=== PATIENT | female | born 1995 | race Caucasian/White ===

== ENCOUNTER 2017-03-01 18:30 | Emergency (ER) | payer OTHER ==
[~2017-03-01] VITALS: Ht 162.6 cm; Wt 73.0 kg
[2017-03-01 18:30] VITALS: BP_SYST 134
[2017-03-01] MEDS ORDERED: DIPH-TET-PERTUS Vaccine 0.5 ML VIAL (ADACEL) IM ONE (19:30)
[2017-03-01] MEDS ORDERED: ACETAMINOPHEN 500 MG TABLET PO ONE (19:30)
[2017-03-01 19:40] VITALS: BP_SYST 124
== END 2017-03-01 19:40 | disposition home or self-care (01) ==
LOC: SED 18:30
DX: S61.412A Laceration without foreign body of left hand, initial encounter (principal); J45.909 Unspecified asthma, uncomplicated; W26.8XXA Contact with other sharp object(s), not elsewhere classified, initial encounter; Y93.89 Activity, other specified; Y92.89 Other specified places as the place of occurrence of the external cause; Y99.8 Other external cause status
CPT/HCPCS: 90715; 99283

== ENCOUNTER 2018-06-19 00:03 | Emergency (ER) | payer OTHER ==
[~2018-06-19] VITALS: Ht 162.6 cm; Wt 70.3 kg
[2018-06-19 00:20] VITALS: BP_SYST 127
--- NOTE | 2018-06-19 00:21 | NUR ---
Pt complain of possible bug bite. Per pt stated that she noticed pain on the left lower leg approximately 10am, pain level of 5/10. Pt able to ambulate. slight swelling noted. Pt resting in bed. afibrile. Will continue to monitor
--- NOTE | 2018-06-19 00:44 | NUR ---
ER at bedside examining patient.
[2018-06-19] MEDS ORDERED: IBUPROFEN 800 MG TABLET PO ONE (01:00)
[2018-06-19] MEDS ORDERED: CLINDAMYCIN HCL 150 MG CAPSULE PO ONE (01:00)
--- NOTE | 2018-06-19 01:00 | NUR ---
Patient given written and verbal discharge instructions and verbalizes understanding. ER MD discussed with patient the results and treatment provided. Patient in stable condition. ID arm band removed. Rx of Bactrim and Motrin given. Patient educated on pain management and to follow up with PMD. Pain Scale 5/10. Per pt able to tolerate pain level. Opportunity for questions provided and answered. Medication side effect fact sheet provided.
== END 2018-06-19 01:00 | disposition home or self-care (01) ==
LOC: SED 00:03
DX: S80.862A Insect bite (nonvenomous), left lower leg, initial encounter (principal); L03.116 Cellulitis of left lower limb; J45.909 Unspecified asthma, uncomplicated; R03.0 Elevated blood-pressure reading, without diagnosis of hypertension; W57.XXXA Bitten or stung by nonvenomous insect and other nonvenomous arthropods, initial encounter; Y93.89 Activity, other specified; Y92.89 Other specified places as the place of occurrence of the external cause; Y99.8 Other external cause status
CPT/HCPCS: 99283

== ENCOUNTER 2018-08-11 08:35 | Emergency (ER) | payer OTHER ==
[~2018-08-11] VITALS: Ht 162.6 cm; Wt 68.0 kg
[2018-08-11 08:53] VITALS: BP_SYST 130
[2018-08-11] MEDS ORDERED: IPRATROPIUM/ALBUTEROL SULFATE 3 ML AMPUL.NEB (DUONEB) INH ONE ×2 (09:30→10:15)
[2018-08-11] MEDS ORDERED: IPRATROPIUM/ALBUTEROL SULFATE 3 ML AMPUL.NEB (DUONEB) ONE (09:32)
[2018-08-11] MEDS ORDERED: NACL 0.9% 1,000 ML IV ONE (10:15)
[2018-08-11] MEDS ORDERED: DEXAMETHASONE SOD PHOSPHATE 10 MG/ML VIAL IVP ONE (10:15)
[2018-08-11 11:51] VITALS: BP_SYST 136
== END 2018-08-11 11:51 | disposition home or self-care (01) ==
LOC: SED 08:35
DX: J45.909 Unspecified asthma, uncomplicated (principal)
CPT/HCPCS: 94640; 96374; 99285; J1100; J7030; J7620; 99284

== ENCOUNTER 2018-11-22 07:05 | Emergency (ER) | payer OTHER ==
[~2018-11-22] VITALS: Ht 162.6 cm; Wt 68.0 kg
[2018-11-22 07:10] VITALS: BP_SYST 130
[2018-11-22 08:00] VITALS: BP_SYST 130
== END 2018-11-22 08:00 | disposition home or self-care (01) ==
LOC: SED 07:05
DX: S06.0X0A Concussion without loss of consciousness, initial encounter (principal); J45.909 Unspecified asthma, uncomplicated; W22.8XXA Striking against or struck by other objects, initial encounter; Y93.89 Activity, other specified; Y92.89 Other specified places as the place of occurrence of the external cause; Y99.8 Other external cause status
CPT/HCPCS: 99283

== ENCOUNTER 2019-05-14 08:36 | Emergency (ER) | payer MEDICAID, OTHER ==
[~2019-05-14] VITALS: Ht 162.6 cm; Wt 70.3 kg
[2019-05-14 08:38] VITALS: BP_SYST 140
--- NOTE | 2019-05-14 08:46 | NUR ---
Patient to ER bed 1 to gown for evaluation. Side rails up. Report given to Lorene BENÍTEZ.
--- NOTE | 2019-05-14 08:50 | NUR ---
Patient presented to ER with C/O headache with chills & sweating. Patient A&Ox4, afebrile, skin pink, pain 2/10, denies N/V/D. Patient states she has had Headache x2 days, today patient states she had facial numbnes and bilat hand numbness. Patient denies other health Hx.
--- NOTE | 2019-05-14 09:49 | NUR ---
ER Dr. Sharif at bedside examining patient.
[2019-05-14 10:00] LABS: BASOPHILS % (AUTO) 0.4 % (0.0-2.0); EOSINOPHILS # (AUTO) 0.1 K/uL (0.0-0.4); EOSINOPHILS % (AUTO) 0.9 % (0.0-4.0); HEMATOCRIT 42.9 % (36-48); HEMOGLOBIN 14.4 g/dL (12.0-16.0); LYMPHOCYTES # (AUTO) 1.2 K/uL (1.0-5.5); LYMPHOCYTES % (AUTO) 9.8 % (20.5-51.5); MEAN CORPUSCULAR HEMOGLOBIN 30 pg (27-31); MEAN CORPUSCULAR HGB CONC 34 % (32-36); MEAN CORPUSCULAR VOLUME 90 fL (79.0-98.0); MONOCYTES # (AUTO) 0.8 K/uL (0.0-1.0); MONOCYTES % (AUTO) 6.6 % (1.7-9.3); NEUTROPHILS # (AUTO) 10.1 K/uL (1.8-7.7); NEUTROPHILS % (AUTO) 82.3 % (40.0-70.0); PLATELET COUNT (AUTO) 248 K/uL (130-430); RED BLOOD CELL COUNT(AUTO) 4.79 MIL/uL (4.2-6.2); WHITE BLOOD COUNT (AUTO) 12.3 K/uL (4.8-10.8)
[2019-05-14 10:15] LABS: CALCIUM 9.4 mg/dL (8.4-11.0); CREATININE 0.62 mg/dL (0.55-1.30); POTASSIUM 3.2 mmol/L (3.5-5.1)
--- NOTE | 2019-05-14 10:15 | NUR ---
Gina fan in ED - 05/14/19 at 1940 by SDEDTD KEANU Sharif at [facility] for eye procedure patient.
[2019-05-14 10:18] LABS: INR 1.1 (0.8-1.2)
[2019-05-14 10:19] LABS: ALBUMIN 3.6 g/dL (3.4-4.8)
[2019-05-14 10:40] LABS: BARBITURATE, URINE NEGATIVE (NEG <=200); BENZODIAZEPINE, URINE NEGATIVE (NEG <=150); CANNABINOID, URINE POSITIVE (NEG <=50); COCAINE, URINE NEGATIVE (NEG <=150); METHAMPHETAMINES SCREEN,URINE NEGATIVE (NEG <=500); OPIATE, URINE NEGATIVE (NEG <=100); PHENCYCLIDINE SCREEN,URINE NEGATIVE (NEG <=25); UR TRICYCLIC ANTIDEPRESSANTS NEGATIVE (NEG <=300); URINE AMPHETAMINE NEGATIVE (NEG <=500); URINE METHADONE NEGATIVE (NEG <=200); URINE OXYCODONE SCREEN NEGATIVE (NEG <=100); URINE PROPOXYPHENE SCREEN NEGATIVE (NEG <=300)
[2019-05-14 11:00] VITALS: BP_SYST 140
--- NOTE | 2019-05-14 11:00 | NUR ---
Patient given written and verbal discharge instructions and verbalizes understanding. ER MD discussed with patient the results and treatment provided. Patient in stable condition. ID arm band removed. Rx of [place] & Ibuprofen given. Patient educated on pain management and to follow up with PMD. Pain Scale 1/10 tolerable for pt. Opportunity for questions provided and answered. Medication side effect fact sheet provided.
== END 2019-05-14 11:00 | disposition home or self-care (01) ==
LOC: SED 08:36
DX: R51 Headache (principal); H53.8 Other visual disturbances; J45.909 Unspecified asthma, uncomplicated
CPT/HCPCS: 36415; 70450-TC; 71045; 80053; 80307; 81025; 82550-TC; 84484; 85025; 85610-TC; 85730-TC; 93005; 99284

== ENCOUNTER 2019-05-19 13:11 | Emergency (ER) | payer MEDICAID ==
[~2019-05-19] VITALS: Ht 162.6 cm; Wt 70.3 kg
[2019-05-19 13:16] VITALS: BP_SYST 143
--- NOTE | 2019-05-19 13:22 | NUR ---
Patient to ER bed 07 to gown for evaluation. Side rails up.
--- NOTE | 2019-05-19 13:25 | NUR ---
Patient is awake, alert, and oriented x4. 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 Patient is complaining of headache /. Denies SOB, nausea and vomiting.
--- NOTE | 2019-05-19 13:27 | NUR ---
ER MARY Mustafa examining patient.
[2019-05-19] MEDS ORDERED: NACL 0.9% 1,000 ML IV ONE (13:45)
[2019-05-19] MEDS ORDERED: KETOROLAC TROMETHAMINE 30 MG VIAL IVP ONE (13:45)
[2019-05-19] MEDS ORDERED: ONDANSETRON HCL 4 MG/2 ML VIAL IVP ONE (13:45)
--- NOTE | 2019-05-19 13:59 | NUR ---
Report given to JEYSON Pascual for continuation of care.
[2019-05-19 14:05] LABS: BASOPHILS # (AUTO) 0.1 K/uL (0.0-0.2); EOSINOPHILS # (AUTO) 0.4 K/uL (0.0-0.4); EOSINOPHILS % (AUTO) 7.3 % (0.0-4.0); HEMATOCRIT 39.6 % (36-48); HEMOGLOBIN 13.4 g/dL (12.0-16.0); LYMPHOCYTES # (AUTO) 1.4 K/uL (1.0-5.5); LYMPHOCYTES % (AUTO) 25.3 % (20.5-51.5); MEAN CORPUSCULAR HEMOGLOBIN 30 pg (27-31); MEAN CORPUSCULAR HGB CONC 34 % (32-36); MEAN CORPUSCULAR VOLUME 90 fL (79.0-98.0); MONOCYTES # (AUTO) 0.5 K/uL (0.0-1.0); MONOCYTES % (AUTO) 9.7 % (1.7-9.3); NEUTROPHILS # (AUTO) 3.1 K/uL (1.8-7.7); NEUTROPHILS % (AUTO) 56.7 % (40.0-70.0); PLATELET COUNT (AUTO) 389 K/uL (130-430); RED BLOOD CELL COUNT(AUTO) 4.42 MIL/uL (4.2-6.2); RED CELL DISTRIBUTION WIDTH 13.1 % (9.0-15.0); WHITE BLOOD COUNT (AUTO) 5.4 K/uL (4.8-10.8)
--- NOTE | 2019-05-19 14:15 | NUR ---
Pt medicated as ordered, well tolerated, VSS , no N/V noted.
[2019-05-19 14:25] LABS: BILIRUBIN,URINE 1+ (NEGATIVE); BLOOD, URINE 3+ (NEGATIVE); CLARITY/URINE CLEAR (CLEAR); COLOR,URINE YELLOW (YELLOW); GLUCOSE,URINE NEGATIVE (NEGATIVE); KETONES,URINE NEGATIVE (NEGATIVE); LEUKOCYTE ESTERASE ,URINE NEGATIVE (NEGATIVE); NITRITE, URINE NEGATIVE (NEGATIVE); PROTEIN URINE TRACE (NEGATIVE)
[2019-05-19 14:33] LABS: BARBITURATE, URINE NEGATIVE (NEG <=200); BENZODIAZEPINE, URINE NEGATIVE (NEG <=150); CANNABINOID, URINE POSITIVE (NEG <=50); COCAINE, URINE NEGATIVE (NEG <=150); METHAMPHETAMINES SCREEN,URINE NEGATIVE (NEG <=500); OPIATE, URINE NEGATIVE (NEG <=100); PHENCYCLIDINE SCREEN,URINE NEGATIVE (NEG <=25); UR TRICYCLIC ANTIDEPRESSANTS NEGATIVE (NEG <=300); URINE AMPHETAMINE NEGATIVE (NEG <=500); URINE METHADONE NEGATIVE (NEG <=200); URINE OXYCODONE SCREEN NEGATIVE (NEG <=100); URINE PROPOXYPHENE SCREEN NEGATIVE (NEG <=300)
[2019-05-19 14:37] LABS: CALCIUM 9.7 mg/dL (8.4-11.0); CREATININE 0.58 mg/dL (0.55-1.30); POTASSIUM 3.3 mmol/L (3.5-5.1)
[2019-05-19 14:42] LABS: ALBUMIN 3.2 g/dL (3.4-4.8); TOTAL BILIRUBIN 0.3 mg/dL (0.0-1.0)
[2019-05-19 14:44] LABS: BACTERIA,URINE RARE /HPF (None Seen); WBC,URINE 0-3 /HPF (0-3)
[2019-05-19 14:59] VITALS: BP_SYST 116
--- NOTE | 2019-05-19 14:59 | NUR ---
Patient given written and verbal discharge instructions and verbalizes understanding. ER MD discussed with patient the results and treatment provided. Patient in stable condition. ID arm band removed. Patient educated on pain management and to follow up with PMD. Pain Scale 0/10. Opportunity for questions provided and answered. Medication side effect fact sheet provided.
== END 2019-05-19 14:59 | disposition home or self-care (01) ==
LOC: SED 13:11
DX: R51 Headache (principal); F12.90 Cannabis use, unspecified, uncomplicated; R03.0 Elevated blood-pressure reading, without diagnosis of hypertension; J45.909 Unspecified asthma, uncomplicated; Z86.011 Personal history of benign neoplasm of the brain
CPT/HCPCS: 36415; 80053; 80307; 81000; 81025; 85025; 93005; 96361; 96374; 96375; 99284; J1885; J2405; J7030

== ENCOUNTER 2020-07-20 05:23 | Emergency (ER) | payer OTHER ==
[~2020-07-20] VITALS: Ht 162.6 cm; Wt 74.4 kg
[2020-07-20 05:27] VITALS: BP_SYST 148
--- NOTE | 2020-07-20 05:27 | NUR ---
Patient to ER bed 7 to gown for evaluation. Side rails up.
--- NOTE | 2020-07-20 05:30 | NUR ---
pt a&o x4 from home c/o of waking up about an hour ago & feeling "her heart beat out of her chest". pt states she is having chest pain that is radiating to shoulder and shortness of breath. pt rates her pain 6/10. pt hx of anxiety and asthma.
--- NOTE | 2020-07-20 05:35 | NUR ---
# 20 gauge angiocath placed to LAC. Use of asceptic technique. Opsite placed over site. Blood return noted. Blood for lab drawn from site. Flushed with 10 cc of normal saline. No evidence of infiltration noted. Patient tolerated well.
--- NOTE | 2020-07-20 05:38 | NUR ---
ER Dr. harrell at bedside examining patient.
[2020-07-20] MEDS ORDERED: METOPROLOL TARTRATE 25 MG TABLET PO ONE (05:45)
--- NOTE | 2020-07-20 05:50 | NUR ---
METOPROLOL 25MG PO HELD. PT BP 118/86 & HR 70. AWARE.
[2020-07-20 06:01] LABS: BASOPHILS # (AUTO) 0.1 K/uL (0.0-0.2); BASOPHILS % (AUTO) 1.5 % (0.0-2.0); EOSINOPHILS # (AUTO) 0.2 K/uL (0.0-0.4); EOSINOPHILS % (AUTO) 2.9 % (0.0-4.0); HEMATOCRIT 43.7 % (36-48); HEMOGLOBIN 15.1 g/dL (12.0-16.0); LYMPHOCYTES % (AUTO) 29.7 % (20.5-51.5); MEAN CORPUSCULAR HEMOGLOBIN 31 pg (27-31); MEAN CORPUSCULAR HGB CONC 35 % (32-36); MEAN CORPUSCULAR VOLUME 89 fL (79.0-98.0); MONOCYTES # (AUTO) 0.5 K/uL (0.0-1.0); MONOCYTES % (AUTO) 8.3 % (1.7-9.3); NEUTROPHILS # (AUTO) 3.8 K/uL (1.8-7.7); NEUTROPHILS % (AUTO) 57.6 % (40.0-70.0); PLATELET COUNT (AUTO) 266 K/uL (130-430); RED BLOOD CELL COUNT(AUTO) 4.93 MIL/uL (4.2-6.2); RED CELL DISTRIBUTION WIDTH 13.3 % (9.0-15.0); WHITE BLOOD COUNT (AUTO) 6.6 K/uL (4.8-10.8)
--- NOTE | 2020-07-20 06:05 | NUR ---
XRAY AT BEDSIDE.
[2020-07-20 06:12] LABS: ALBUMIN 4.3 g/dL (3.4-4.8); CALCIUM 8.9 mg/dL (8.4-11.0); CREATININE 0.61 mg/dL (0.55-1.30); POTASSIUM 3.7 mmol/L (3.5-5.1); TOTAL BILIRUBIN 0.6 mg/dL (0.0-1.0)
--- NOTE | 2020-07-20 07:12 | NUR ---
REPORT GIVEN TO JEYSON REGALADO FOR CONTINUATION OF CARE.
[2020-07-20] MEDS ORDERED: LORazepam 1 MG TABLET PO ONE (07:15)
[2020-07-20 07:27] VITALS: BP_SYST 114
--- NOTE | 2020-07-20 07:30 | NUR ---
Pt educated about not driving after taking Ativan, pt states mother is here waiting for her to take her home.
== END 2020-07-20 07:32 | disposition home or self-care (01) ==
LOC: SED 05:23
DX: F41.9 Anxiety disorder, unspecified (principal); R07.89 Other chest pain; R00.2 Palpitations; J45.909 Unspecified asthma, uncomplicated; F12.90 Cannabis use, unspecified, uncomplicated
CPT/HCPCS: 36415; 71045; 80053; 84484; 85025; 85379; 93005; 99284

== ENCOUNTER 2022-12-15 10:56 | Emergency (ER) | payer OTHER ==
[2022-12-15 11:28] VITALS: BP_SYST 133
[2022-12-15] MEDS: ALBUTEROL SULFATE 0.083% 2.5 MG/3 ML VIAL.NEB INH SCH ×2 (11:40→13:00)
[2022-12-15] MEDS: IPRATROPIUM BROM 0.5 MG/2.5 ML VIAL.NEB (ATROVENT) INH SCH ×2 (11:40→13:00)
[2022-12-15] MEDS ORDERED: methylPREDNISolone SOD SUCC/PF 62.5 MG/ML VIAL IVP ONE (11:45)
[2022-12-15] MEDS ORDERED: ASPIRIN 81 MG TAB.CHEW PO ONE (11:45)
[2022-12-15 11:59] LABS: BASOPHILS % (AUTO) 0.4 % (0.0-2.0); EOSINOPHILS # (AUTO) 0.1 K/uL (0.0-0.4); EOSINOPHILS % (AUTO) 0.7 % (0.0-4.0); HEMATOCRIT 45.5 % (36-48); HEMOGLOBIN 15.4 g/dL (12.0-16.0); LYMPHOCYTES # (AUTO) 0.5 K/uL (1.0-5.5); LYMPHOCYTES % (AUTO) 5.3 % (20.5-51.5); MEAN CORPUSCULAR HEMOGLOBIN 30 pg (27-31); MEAN CORPUSCULAR HGB CONC 34 % (32-36); MEAN CORPUSCULAR VOLUME 88 fL (79.0-98.0); NEUTROPHILS # (AUTO) 8.6 K/uL (1.8-7.7); NEUTROPHILS % (AUTO) 83.6 % (40.0-70.0); PLATELET COUNT (AUTO) 265 K/uL (130-430); RED BLOOD CELL COUNT(AUTO) 5.14 MIL/uL (4.2-6.2); RED CELL DISTRIBUTION WIDTH 13.2 % (9.0-15.0); WHITE BLOOD COUNT (AUTO) 10.3 K/uL (4.8-10.8)
[2022-12-15 12:07] LABS: ALANINE AMINOTRANSFERASE 21 U/L (12-78); ALBUMIN 4.2 g/dL (3.4-4.8); ANION GAP 12 (5-15); ASPARTATE AMINOTRANSFERASE 16 U/L (10-37); CALCIUM 9.3 mg/dL (8.4-11.0); CHLORIDE 104 mmol/L (98-107); CREATININE 0.65 mg/dL (0.55-1.30); GLUCOSE 103 mg/dL (70-99); TOTAL BILIRUBIN 0.4 mg/dL (0.0-1.0); UREA NITROGEN, BLOOD 11 mg/dL (8-21)
[2022-12-15 12:11] LABS: GFR AFRICAN AMERICAN 139 mL/min (>90)
[2022-12-15] MEDS ORDERED: cefTRIAXone 1 GM in D5W 50 ML IV ONE (14:00)
[2022-12-15] MEDS ORDERED: cefTRIAXone 1 GM VIAL ONE (14:15)
[2022-12-15] MEDS ORDERED: AZITHROMYCIN 500 MG in NS 250 ML IV ONE (14:15)
[2022-12-15] MEDS ORDERED: MED4 PO (15:09)
[2022-12-15] MEDS ORDERED: ALBMDI INH (15:09)
[2022-12-15 15:21] VITALS: BP_SYST 118
== END 2022-12-15 16:23 | disposition left against medical advice (07) ==
LOC: SED 10:56 → UNDOADMIN 14:02 → STU 14:02 → SMU 16:23 → UNDODISIN 16:23 → STU 16:28 → SMU 16:28
DX: J45.901 Unspecified asthma with (acute) exacerbation (principal); F41.9 Anxiety disorder, unspecified; Z20.822 Contact with and (suspected) exposure to COVID-19; R09.02 Hypoxemia; Z85.43 Personal history of malignant neoplasm of ovary
CPT/HCPCS: 80053; 83880; 85025; 84484; 36415; 93005; 71045; 94640; 94760; 99285; 96365; 96375; 87804 ×2; 87426; J0456; J0696; J2930; J7613; J7050

== ENCOUNTER 2022-12-15 18:18 | Inpatient (IN) | payer OTHER ==
[~2022-12-15] VITALS: Ht 162.6 cm; Wt 66.3 kg
[2022-12-15 18:18] VITALS: BP_SYST 120
[~2022-12-15 18:18] MED LIST: ALBMDI INH; MED4 PO
[2022-12-15] MEDS ORDERED: AZITHROMYCIN 500 MG in NS 250 ML IV ONE (18:45)
[2022-12-15] MEDS ORDERED: TEMAZEPAM 15 MG CAPSULE PO PRN (19:45)
[2022-12-15] MEDS ORDERED: IPRATROPIUM/ALBUTEROL SULFATE 3 ML AMPUL.NEB (DUONEB) INH PRN (19:45)
[2022-12-15] MEDS ORDERED: ACETAMINOPHEN 325 MG TABLET PO PRN (19:45)
[2022-12-15] MEDS ORDERED: cefTRIAXone 1 GM VIAL ONE (20:02)
[2022-12-15] MEDS ORDERED: AZITHROMYCIN 500 MG/VIAL (ZITHROMAX) IV ONE (20:02)
[2022-12-15] MEDS: cefTRIAXone 1 GM in D5W 50 ML IV SCH (20:11)
[2022-12-15] MEDS: IPRATROPIUM/ALBUTEROL SULFATE 3 ML AMPUL.NEB (DUONEB) INH SCH (21:00)
[2022-12-15] MEDS: AZITHROMYCIN 500 MG in NS 250 ML IV SCH (21:07)
[2022-12-15 21:40] VITALS: BP_SYST 127
[2022-12-15] MEDS: METHYLPREDNISOLONE SOD SUCC 40 MG/ML VIAL IVP SCH (22:05)
[2022-12-16 00:37] VITALS: BP_SYST 135
[2022-12-16 02:22] VITALS: BP_SYST 135
[2022-12-16] MEDS: IPRATROPIUM/ALBUTEROL SULFATE 3 ML AMPUL.NEB (DUONEB) INH SCH ×4 (07:09→19:00)
[2022-12-16 08:14] LABS: BASOPHILS % (AUTO) 0.1 % (0.0-2.0); HEMATOCRIT 45.1 % (36-48); HEMOGLOBIN 15.3 g/dL (12.0-16.0); LYMPHOCYTES # (AUTO) 0.8 K/uL (1.0-5.5); LYMPHOCYTES % (AUTO) 6.4 % (20.5-51.5); MEAN CORPUSCULAR HEMOGLOBIN 30 pg (27-31); MEAN CORPUSCULAR HGB CONC 34 % (32-36); MEAN CORPUSCULAR VOLUME 89 fL (79.0-98.0); MONOCYTES # (AUTO) 1.1 K/uL (0.0-1.0); MONOCYTES % (AUTO) 8.8 % (1.7-9.3); NEUTROPHILS # (AUTO) 10.6 K/uL (1.8-7.7); NEUTROPHILS % (AUTO) 84.7 % (40.0-70.0); PLATELET COUNT (AUTO) 289 K/uL (130-430); RED BLOOD CELL COUNT(AUTO) 5.09 MIL/uL (4.2-6.2); RED CELL DISTRIBUTION WIDTH 13.2 % (9.0-15.0); WHITE BLOOD COUNT (AUTO) 12.6 K/uL (4.8-10.8)
[2022-12-16 08:41] LABS: ALBUMIN 4.1 g/dL (3.4-4.8); CALCIUM 9.2 mg/dL (8.4-11.0); CREATININE 0.68 mg/dL (0.55-1.30); TOTAL BILIRUBIN 0.4 mg/dL (0.0-1.0)
[2022-12-16] MEDS: CHOLECALCIFEROL (VITAMIN D3) 5,000 UNIT TABLET PO SCH (09:15)
[2022-12-16] MEDS: METHYLPREDNISOLONE SOD SUCC 40 MG/ML VIAL IVP SCH ×2 (09:15→20:56)
[2022-12-16] MEDS: cefTRIAXone 1 GM in D5W 50 ML IV SCH (09:16)
[2022-12-16] MEDS: AZITHROMYCIN 500 MG in NS 250 ML IV SCH (10:51)
[2022-12-16 12:00] VITALS: BP_SYST 128
[2022-12-16 16:00] VITALS: BP_SYST 125
[2022-12-16 20:00] VITALS: BP_SYST 119
[2022-12-17 03:09] VITALS: BP_SYST 120
[2022-12-17] MEDS: IPRATROPIUM/ALBUTEROL SULFATE 3 ML AMPUL.NEB (DUONEB) INH SCH ×3 (07:18→15:27)
[2022-12-17 08:00] VITALS: BP_SYST 113
[2022-12-17] MEDS: METHYLPREDNISOLONE SOD SUCC 40 MG/ML VIAL IVP SCH (08:54)
[2022-12-17] MEDS: CHOLECALCIFEROL (VITAMIN D3) 5,000 UNIT TABLET PO SCH (08:54)
[2022-12-17] MEDS: cefTRIAXone 1 GM in D5W 50 ML IV SCH (08:55)
[2022-12-17] MEDS: AZITHROMYCIN 500 MG in NS 250 ML IV SCH (09:39)
[2022-12-17 11:10] VITALS: BP_SYST 118
[2022-12-17 16:00] VITALS: BP_SYST 115
[2022-12-17] MEDS ORDERED: CHOL500013 PO (17:46)
[2022-12-17] MEDS ORDERED: PRED10TA PO (17:48)
[2022-12-17] MEDS ORDERED: DOXY100C5 PO (17:55)
[2022-12-17] MEDS ORDERED: BECL10.62 INH (18:03)
[2022-12-17 18:17] VITALS: BP_SYST 115
== END 2022-12-17 18:48 | disposition home or self-care (01) | DRG 202 ==
LOC: SED 18:18 → STU 18:42 → SMU 12-16 10:29
PROVIDERS: ADMIT Internal Medicine; ATTEND Internal Medicine
DX: J45.901 Unspecified asthma with (acute) exacerbation (principal); J18.9 Pneumonia, unspecified organism
CPT/HCPCS: 36415; 80053; 82306; 84703; 85025; 87040; 87205-TC; 94640; 94760; 96365; 99285; G0378; J0456; J0696; J1030; J7050; J7060